=== PATIENT | male | born 1945 | race Caucasian/White ===

== ENCOUNTER 2016-11-14 18:23 | Emergency (ER) | payer OTHER ==
[~2016-11-14] VITALS: Ht 170.2 cm; Wt 65.9 kg
[~2016-11-14 18:23] MED LIST: ADVAIR 250/501 DISK IH; ALLOPURINOL100 MG PO; AMBIEN10 MG PO; ARICEPT5 MG PO; BACLOFEN10 MG PO; Bactrim,Septra Singl PO; COUMADIN3 MG PO; CYMBALTA60 MG PO; DESYREL100 MG PO; DUONEB 2.5-0.5 M3 ML PEP; HYDROCHLOROTHIA25 MG PO; LEXAPRO10 MG PO; LEXAPRO20 MG PO; LIORESAL10 MG PO; LIPITOR10 MG PO; LOVENOX40 MG/0.4 SC; Lioresal PO; Lopressor PO; MOBIC7.5 MG PO; NORVASC10 MG PO; NORVASC5 MG PO; OMEPRAZOLE20 M1 PO; PAXIL40 MG PO; PLAVIX75 MG PO; PRILOSEC20 MG PO; PROTONIX40 MG PO; RANITIDINE HCL300 MG PO; REMERON15 M2 PO; SEROQUEL12.5 MG PO; SIMVASTATIN20 MG PO; SPIRIVA1 INHALATI IH; SYMBICORT60 INHALAT IH; TRAZODONE HCL50 MG PO; TYLENOL PM EX-1 EACH PO; TYLENOL REGULA325 MG PO; Tylenol Regular Stre PO; VITAMIN A A1 CAPSULE PO; XARELTO20 MG PO; ZOFRAN4 MG PO; ZYLOPRIM100 MG PO; Zocor PO
[2016-11-14 22:18] VITALS: BP 105/71
== END 2016-11-14 23:35 ==
LOC: EME → EDBD 18:23 → EME 18:23
DX: S00.93XA Contusion of unspecified part of head, initial encounter (principal); S70.01XA Contusion of right hip, initial encounter; M54.2 Cervicalgia; W06.XXXA Fall from bed, initial encounter; Y93.89 Activity, other specified; Y92.122 Bedroom in nursing home as the place of occurrence of the external cause; J44.9 Chronic obstructive pulmonary disease, unspecified; K21.9 Gastro-esophageal reflux disease without esophagitis; I73.9 Peripheral vascular disease, unspecified; I10 Essential (primary) hypertension; E78.5 Hyperlipidemia, unspecified; I25.2 Old myocardial infarction; Z86.718 Personal history of other venous thrombosis and embolism; Z86.711 Personal history of pulmonary embolism; Z79.01 Long term (current) use of anticoagulants; F17.200 Nicotine dependence, unspecified, uncomplicated; Z86.73 Personal history of transient ischemic attack (TIA), and cerebral infarction without residual deficits
CPT/HCPCS: 70450; 72125; 73502; 99281; 99284

== ENCOUNTER 2017-07-07 15:35 | Emergency (ER) | payer OTHER ==
[~2017-07-07] VITALS: Ht 170.2 cm; Wt 73.3 kg
[2017-07-07 16:09] LABS: INTER. NORMALIZED RATIO 2.5
[2017-07-07 16:10] LABS: BASOPHIL (%) 0.6 % (0-1); BASOPHIL COUNT 0.1 K/uL (0-0.1); EOSINOPHIL (%) 3.1 % (0-5); EOSINOPHIL COUNT 0.4 K/uL (0-0.3); HEMATOCRIT 52.4 % (38.0-50.0); HEMOGLOBIN 17.7 G/DL (12.5-16.6); IMMATURE GRANULOCYTE (%) 0.5 % (0.0-0.7); MCHC 33.8 G/DL (30.0-36.0); MCV 91.8 FL (86-99); MONOCYTE (%) 7.1 % (3-12); MONOCYTE COUNT 0.9 K/uL (0-0.8); NEUTROPHIL (%) 73.7 % (45-76); NEUTROPHIL COUNT 9.8 K/uL (1.8-6.4); PLATELET COUNT 256 K/uL (156-360); RBC DIS.WIDTH-CV 13.2 % (11.8-14.6); RBC DIS.WIDTH-SD 44.8 % (39-53); RED BLOOD COUNT 5.71 M/uL (4.00-5.50); WHITE BLOOD COUNT 13.3 K/uL (4.1-10.2)
[2017-07-07 16:11] LABS: ALBUMIN 4.3 g/dL (3.2-4.8); CHLORIDE 95 mEq/L (99-109); POTASSIUM 4.1 mEq/L (3.7-5.4); PTT 41.4 SEC (25-37); SODIUM 139 mEq/L (136-147)
[2017-07-07 16:13] LABS: GLUCOSE 78 mg/dL (70-99); TOTAL PROTEIN 8.1 g/dL (6.4-8.3)
[2017-07-07 16:15] LABS: TOTAL BILIRUBIN 0.7 mg/dL (0.0-1.0)
[2017-07-07 16:17] LABS: ALKALINE PHOSPHATASE 169 IU/L (3-129); CREATININE 1.2 mg/dL (0.6-1.3); GFR ESTIMATE (CALCULATED) > 59 mL/min/ (58.99-99999)
[2017-07-07 16:18] LABS: UREA NITROGEN (BUN) 21 mg/dL (9-23)
[2017-07-07 16:19] LABS: AST (GOT) 22 IU/L (2-34)
[2017-07-07 16:20] LABS: ALT (GPT) 20 IU/L (3-49)
[2017-07-07 16:22] LABS: TROP-I INTERPRETATION NEGATIVE; TROPONIN-I 0.01 ng/mL (0.0-0.30)
[2017-07-07 18:40] LABS: TROP-I INTERPRETATION NEGATIVE; TROPONIN-I 0.02 ng/mL (0.0-0.30)
[2017-07-07 19:36] VITALS: BP 141/87
== END 2017-07-07 20:48 | disposition home or self-care (01) ==
LOC: EME 15:35
PROVIDERS: Emergency Medicine
DX: R07.89 Other chest pain (principal); J44.9 Chronic obstructive pulmonary disease, unspecified; K21.9 Gastro-esophageal reflux disease without esophagitis; I10 Essential (primary) hypertension; E78.5 Hyperlipidemia, unspecified; I25.2 Old myocardial infarction; I73.9 Peripheral vascular disease, unspecified; F41.9 Anxiety disorder, unspecified; F32.9 Major depressive disorder, single episode, unspecified; F17.200 Nicotine dependence, unspecified, uncomplicated; Z86.73 Personal history of transient ischemic attack (TIA), and cerebral infarction without residual deficits; Z86.711 Personal history of pulmonary embolism; Z86.718 Personal history of other venous thrombosis and embolism; Z88.6 Allergy status to analgesic agent
CPT/HCPCS: 71046; 71250; 80053; 84484; 85025; 85379; 85610; 85730; 93005; 99281; 99285